=== PATIENT | female | born 1990 | race African-American/Black ===

== ENCOUNTER 2018-06-05 23:34 | Emergency (ER) | payer OTHER ==
[~2018-06-05] VITALS: Ht 175.3 cm; Wt 81.6 kg
--- OUTSIDE RECORDS SUMMARY | 2018-06-05 23:37 | XMS REPORT | Clinical Summary ---
Author Author [employer] [facility] [employer] Address Unknown Phone Unavailable Care Team Providers Care Greeter Name Role Phone Asked, No Pcp PCP Unavailable Allergies Not on File Medications Not on file Active Problems Not on file Encounters Care Team Description Date Type Specialty Rodney Lyn MD Midline back pain, unspecified back location, unspecified chronicity (Primary Dx) 04/25/2018 Transcribe Physical Therapy Orders after 06/04/2017 Social History Date Tobacco Use Types Packs/Day Years Used Never Assessed Sex Assigned at Date Recorded Not on file Industry Job Start Date Occupation Not on file Not on file Not on file Travel End Travel History Travel Start No recent travel history available. Last Filed Vital Signs Not on file Plan of Treatment Care Team Description Date Type Specialty Rodney Lyn MD [address] [place] [address] [phone] Christofer Higgins, PT [address] [place] [address] [phone] 06/06/2018 Office Visit Physical Therapy Rodney Lyn MD [address] [place] [address] [phone] Christofer Higgins, PT [address] [place] [address] [phone] 06/09/2018 Office Visit Physical Therapy Satya Cervantes II, MD [address] [facility] [address] [place] [address] [phone] 06/10/2018 Office Visit Ophthalmology Health Maintenance Due Date Last Done Comments CERVICAL CANCER SCREENING 08/07/2011 INFLUENZA VACCINE 12/04/2017 Results Not on fileafter 06/04/2017 Insurance Payer Benefit Subscriber ID Type Phone Address Plan / Group WORK[employer] [place] [employer] [id number] [employer] [facility] xxxxxxxxxxxxxxx PPO [facility] xxxxxxxxxxx THCARE CHOICE [facility] Advance Directives Patient has advance care planning documents on file. For more information, fidel yang contact: Moris Parker [address] [place] [address]
--- OUTSIDE RECORDS SUMMARY | 2018-06-05 23:37 | XMS REPORT ---
Author [facility] Address Unknown Phone Unavailable Care Team Providers Care Dental Assistant Name Role Phone JANENE JACKSON Unavailable Unavailable Payers Payer Name Policy Type Policy Number Effective Date Expiration Date Problems This patient has no known problems. Allergies, Adverse Reactions, Alerts Allergy Name Allergy Type Status Severity Reaction(s) Onset Date Inactive Date Treating Clinician Comments No Known Allergies DA Active U 2018-03-10 00:00:00 No Known Allergies DA Active U 2015-12-05 00:00:00 Medications This patient has no known medications. Results Test Description Test Time Test Comments Text Results Atomic Results Result Comments RAD, WRIST, LEFT, COMPLETE (MIN 3 VIEWS) 2017-10-28 17:05:00 Reason for exam:- >injuryIs the patient ?->UnknownShould this be performed at the bedside?->No FINAL REPORT INDICATION:Left wrist pain after injury. COMPARISON: None. TECHNIQUE: Left wrist radiograph three views. FINDINGS / IMPRESSION:No fracture or malalignment is demonstrated. Joint spaces are preserved and no osteophyte formation demonstrated. Subchondral cyst formation in the radial styloid, likely focal degenerative change. Soft tissues unremarkable. Signed: Elyssa Lee MDReport Verified Date/Time: 10/28/2017 17:05:01 Reading Location: [facility] Mammo Reading Room D STREP A SCREEN 2016-09-10 00:09:00 STREP A ANTIGEN (BEAKER) (test [id number]=[id number]) Negative Negative
--- OUTSIDE RECORDS SUMMARY | 2018-06-05 23:37 | XMS REPORT | Clinical Summary ---
Author Author [facility] Address Unknown Phone Unavailable Care Team Providers Care Clay Mixer Name Role Phone Sharpless PCP Allergies No Known Allergies Medications End Date Status Medication Sig Dispensed Refills Start Date Active inhalational spacing Use with the 1 each 0 device (AEROCHAMBER) Spcr inhaler. 7 Active nebulizer and compressor 1 Units by 1 each 0 (COMP-AIR NEBULIZER Miscellaneous 7 COMPRESSOR) Libia route as needed. 01/22/2018 albuterol Take 0.5 mLs 20 mL 0 (PROVENTIL,VENTOLIN) 5 (2.5 mg 7 mg/mL nebulizer solution total) by nebulization every 6 (six) hours as needed for Wheezing. 01/22/2018 albuterol HFA (VENTOLIN Inhale 2 1 Inhaler 0 HFA) 90 mcg/actuation puffs by 7 inhaler mouth via inhaler every 4 (four) hours as needed for Wheezing. 01/22/2018 albuterol HFA (VENTOLIN Inhale 1-2 1 Inhaler 0 HFA) 90 mcg/actuation puffs by 7 inhaler mouth via inhaler every 6 (six) hours as needed for Wheezing. 11/04/2017 ibuprofen (ADVIL,MOTRIN) Take 1 tablet 21 tablet 0 800 MG tablet (800 mg 8 total) by mouth 3 (three) times daily for 7 days. Active Problems Not on file Encounters Care Team Description Date Type Specialty Teetee Ndiaye MD Acute wrist pain, left (Primary Dx); Contusion of left wrist, initial encounter 10/28/2017 Emergency Emergency Medicine after 06/04/2017 Family History Medical History Relation Name Comments Diabetes Mother Hypertension Mother Relation Name Status Comments Mother Social History Date Tobacco Use Types Packs/Day Years Used Never Smoker Smokeless Tobacco: Never Used Alcohol Use Drinks/Week oz/Week Comments Yes occasional Sex Assigned at Date Recorded Not on file Industry Job Start Date Occupation Not on file Not on file Not on file Travel End Travel History Travel Start No recent travel history available. Last Filed Vital Signs Time Taken Vital Sign Reading 10/28/2017 4:21 PM CDT Blood Pressure 110/56 10/28/2017 4:21 PM CDT Pulse 77 10/28/2017 4:21 PM CDT Temperature 37 C (98.6 F) 10/28/2017 4:21 PM CDT Respiratory Rate 18 10/28/2017 4:21 PM CDT Oxygen Saturation 96% - Inhaled Oxygen - Concentration 10/28/2017 4:21 PM CDT Weight 82.6 kg (182 lb) 10/28/2017 4:21 PM CDT Height 175.3 cm (5' 9") 10/28/2017 4:21 PM CDT Body Mass Index 26.88 Plan of Treatment Not on file Procedures Comments Procedure Name Priority Date/Time Associated Diagnosis XR WRIST LEFT COMPLETE STAT 10/28/2017 (MIN 3 VIEWS) 4:49 PM CDT after 06/04/2017 Results * XR wrist complete 3 views min left (10/28/2017 4:49 PM CDT) Narrative Performed At FINAL REPORT GE RIS INDICATION: Left wrist pain after injury. COMPARISON: None. TECHNIQUE: Left wrist radiograph three views. FINDINGS / IMPRESSION: No fracture or malalignment is demonstrated. Joint spaces are preserved and no osteophyte formation demonstrated. Subchondral cyst formation in the radial styloid, likely focal degenerative change. Soft tissues unremarkable. Signed: Elyssa Lee MD Report Verified Date/Time:10/28/2017 17:05:01 Reading Location: [facility] Reading Room Procedure Note Interface, External Ris In - 10/28/2017 5:07 PM CDT FINAL REPORT INDICATION: Left wrist pain after injury. COMPARISON: None. TECHNIQUE: Left wrist radiograph three views. FINDINGS / IMPRESSION: No fracture or malalignment is demonstrated. Joint spaces are preserved and no osteophyte formation demonstrated. Subchondral cyst formation in the radial styloid, likely focal degenerative change. Soft tissues unremarkable. Signed: Elyssa Lee MD Report Verified Date/Time: 10/28/2017 17:05:01 Reading Location: [facility] Mammo Reading Room Performing Organization Address City/State/Zipcode Phone Number GE RIS after 06/04/2017
[2018-06-05] MEDS ORDERED: DONNATAL/LIDOCAINE/MAALOX 30 ML SUSP PO ONE (23:45)
[2018-06-06] MEDS ORDERED: ONDANSETRON HCL 4 MG ORAL DISINTEGRATING TAB PO ONE
== END 2018-06-06 00:41 | disposition home or self-care (01) ==
LOC: FSED 23:34
DX: R10.13 Epigastric pain (principal); K29.00 Acute gastritis without bleeding
CPT/HCPCS: 99283